=== PATIENT | female | born 1990 | race Caucasian/White ===

== ENCOUNTER 2017-10-12 11:13 | Emergency (ER) | payer BC ==
[2017-10-12 11:44] VITALS: BP 114/80
--- NOTE | 2017-10-12 11:53 | UC ---
Complaint Female HPI - HPI Summary HPI Summary: 24 hours of dysuria, no back pain or fever. - History Of Current Complaint Chief Complaint: UCGU Stated Complaint: URINARY Time Seen by Provider: 10/12/17 11:43 Hx Obtained From: Patient Hx Last Menstrual Period: 09/29/17 ?: No Onset/Duration: Sudden Onset, Lasting Days - 1 Timing: Constant Severity Initially: Mild Severity Currently: Moderate Pain Intensity: 4 Aggravating Factor(s): Urination - Allergies/Home Medications Allergies/Adverse Reactions: Allergies Allergy/AdvReac Type Severity Reaction Status Date / Time No Known Allergies Allergy Verified 10/12/17 11:39 Home Medications: Home Medications Methenamine/Sodium Salicylate [Cystex Plus Tablet] 2 each PO BID PRN 10/12/17 [ History Confirmed 10/12/17] PMH/Surg Hx/FS Hx/Imm Hx Previously Healthy: Yes - Surgical History Surgical History: None Surgery Procedure, Year, and Place: wisdom teeth - Family History Known Family History: Positive: Hypertension - Social History Alcohol Use: None Substance Use Type: None Smoking Status (MU): Never Smoked Tobacco Review of Systems Constitutional: Negative Skin: Negative Eyes: Negative ENT: Negative Respiratory: Negative Cardiovascular: Negative Gastrointestinal: Negative Genitourinary: Dysuria, Frequency Motor: Negative Neurovascular: Negative Musculoskeletal: Negative Neurological: Negative Psychological: Negative Is Patient Immunocompromised?: No All Other Systems Reviewed And Are Negative: Yes Physical Exam Triage Information Reviewed: Yes Appearance: Well-Appearing, Well-Nourished, Pain Distress Vital Signs: Initial Vital Signs Temp 97.7 F 10/12/17 11:41 Pulse 81 10/12/17 11:41 Resp 16 10/12/17 11:41 BP 114/80 10/12/17 11:41 Pulse Ox 100 10/12/17 11:41 Vital Signs Reviewed: Yes Eye Exam: Normal ENT Exam: Normal Dental Exam: Normal Neck exam: Normal Respiratory Exam: Normal Respiratory: Positive: Chest non-tender, Lungs clear, Normal breath sounds Cardiovascular Exam: Normal Cardiovascular: Positive: RRR, No Murmur, Pulses Normal Abdominal Exam: Normal Abdomen Description: Positive: Nontender, No Organomegaly, Soft, CVA Tenderness (R) - eg, CVA Tenderness (L) - negn Bowel Sounds: Positive: Present Musculoskeletal Exam: Normal Neurological Exam: Normal Psychological Exam: Normal Skin Exam: Normal Complaint Female Dx - Course Course Of Treatment: hx obtained, exam performed ,meds reviewed, ua obtained, treated for UTI and hx of nausea with ABX - Differential Dx/Diagnosis Differential Diagnosis/HQI/PQRI: Ureteral Stone, Urinary Tract Infection Provider Diagnoses: UTI Discharge - Sign-Out/Discharge Documenting (check all that apply): Discharge/Admit/Transfer - Discharge Plan Condition: Stable Disposition: HOME Patient Education Materials: Urinary Tract Infection in Women (DC) Referrals: No Primary Care Phys,NOPCP [Primary Care Provider] - Additional Instructions: 1. increase fluid intake 2. Take the medication as prescribed 3. Follow up with any worsening symtpoms. - Billing Disposition and Condition Condition: STABLE Disposition: Home
[2017-10-12] MEDS ORDERED: Phenazopyridine TAB* 100 MG PO ONE (11:57)
== END 2017-10-12 12:10 | disposition home or self-care (01) ==
LOC: UCCORT 11:13
DX: N39.0 Urinary tract infection, site not specified (principal); B96.1 Klebsiella pneumoniae [K. pneumoniae] as the cause of diseases classified elsewhere; Z16.11 Resistance to penicillins
CPT/HCPCS: 81003; 87077; 87086; 87186; 99212; A9270-GY; G0463

== ENCOUNTER 2018-03-24 20:22 | Emergency (ER) | payer BC ==
[2018-03-24 20:40] VITALS: BP 118/64
--- NOTE | 2018-03-24 20:55 | UC ---
UC General HPI - HPI Summary HPI Summary: ON 03/16/18, PT NOTED SOME BURNING AND FREQUENCY WITH URINATION. SHE SELF TX WITH KEFLEX 500MG BID X 6 DAYS WHICH WAS A LEFT OVER PRESCRIPTION. SHE NOTED SOME IMPROVEMENT UNTIL TODAY WHEN SHE GOT SOME RECURRENT FREQUENCY AND BURNING WITH URINATION PLUS SOME BLADDER PRESSURE. SHE DENIES AND RISK/CONCERN FOR STD'S AND VAGINAL D/C. PT ALSO DENIES ANY ABDOMINAL PAIN, FLANK PAIN AND FEVER. - History of Current Complaint Chief Complaint: UCGU Stated Complaint: URINARY COMPLAINT Time Seen by Provider: 03/24/18 20:33 Hx Obtained From: Patient Hx Last Menstrual Period: middle of February Pain Intensity: 2 - Allergy/Home Medications Allergies/Adverse Reactions: Allergies Allergy/AdvReac Type Severity Reaction Status Date / Time No Known Allergies Allergy Verified 03/24/18 20:32 PMH/Surg Hx/FS Hx/Imm Hx - Additional Past Medical History Additional PMH: UTI'S - Surgical History Surgical History: None Surgery Procedure, Year, and Place: wisdom teeth - Family History Known Family History: Positive: Hypertension - Social History Occupation: Employed Full-time Alcohol Use: Rare Substance Use Type: None Smoking Status (MU): Never Smoked Tobacco - Immunization History Vaccination Up to Date: Yes Review of Systems All Other Systems Reviewed And Are Negative: Yes Constitutional: Positive: Negative Skin: Positive: Negative Eyes: Positive: Negative ENT: Positive: Negative Respiratory: Positive: Negative Cardiovascular: Positive: Negative Gastrointestinal: Positive: Negative Genitourinary: Positive: Dysuria, Frequency, Urgency. Negative: Vaginal/Penile Burning, Vaginal/Penile Itching, Vaginal/Penile Discharge, Vaginal/Penile Pain, Ulceration/Lesion, Abnormal Bleeding Motor: Positive: Negative Neurovascular: Positive: Negative Musculoskeletal: Positive: Negative Neurological: Positive: Negative Psychological: Positive: Negative Physical Exam Triage Information Reviewed: Yes Appearance: Well-Appearing Vital Signs: Initial Vital Signs Temp 97.6 F 03/24/18 20:33 Pulse 87 03/24/18 20:33 Resp 15 03/24/18 20:33 BP 118/64 03/24/18 20:33 Pulse Ox 100 03/24/18 20:33 Vital Signs Reviewed: Yes Eyes: Positive: Conjunctiva Clear ENT: Positive: Pharynx normal, TMs normal. Negative: Nasal congestion, Nasal drainage Neck: Positive: Supple, Nontender, No Lymphadenopathy Respiratory: Positive: Lungs clear, Normal breath sounds Cardiovascular: Positive: RRR, No Murmur Abdomen Description: Positive: Nontender, No Organomegaly, Soft. Negative: CVA Tenderness (R), CVA Tenderness (L), Distended, Guarding Bowel Sounds: Positive: Present Musculoskeletal: Positive: ROM Intact Neurological: Positive: Alert Psychological: Positive: Age Appropriate Behavior Skin Exam: Normal Diagnostics - Laboratory Diagnostic Studies Completed/Ordered: U/A=TRACE KETONES, 3+ BLOOD,UROBILINOGEN. WILL CULTURE GIVEN HX OF POSSIBLE TX FAILURE. Course/Dx - Course Course Of Treatment: NON TOXIC. NO ACUTE ABDOMEN. NO CONCERN FOR PYELONEPHRITIS. PT DENIES RISK/CONCERN/SIGNS AND SYMPTOMS OF STD. SYMPTOMS CONCERNING FOR UTI THAT FAILED KEFLEX THUS WILL TX PRESUMPTIVELY WITH MACROBID WHILE CULTURE IS PENDING. NON INFECTION CYSTITIS IS POSSIBLE WELL. NEED FOR F /U STRESSED AT TIME OF DISCHARGE DUE TO FAILED TX AND BLOOD IN URINE. - Diagnoses Provider Diagnosis: Dysuria, Hematuria Discharge - Sign-Out/Discharge Documenting (check all that apply): Patient Departure All imaging exams completed and their final reports reviewed: No Studies - Discharge Plan Condition: Stable Disposition: HOME Prescriptions: Nitrofurantoin Monohyd/M-Cryst [Macrobid 100 mg Capsule] 100 mg PO BID 5 Days # 10 cap Patient Education Materials: Hematuria (ED), Dysuria (ED) Referrals: [facility] [Provider Group] - 7 Days - Billing Disposition and Condition Condition: STABLE Disposition: Home
[2018-03-24] MEDS ORDERED: Nitrofurantoin Macrocrystals* 50 MG CAP PO ONE (20:57)
== END 2018-03-24 21:08 | disposition home or self-care (01) ==
LOC: UCCORT 20:22
DX: R30.0 Dysuria (principal); R31.9 Hematuria, unspecified
CPT/HCPCS: 81003; 87086; 99212; A9270-GY; G0463

== ENCOUNTER 2020-12-11 00:08 | Inpatient (IN) ==
[2020-12-11] MEDS ORDERED: Buffered Lidocaine 1% SYRIN 1 ml INTRADERM ONE (01:00)
[2020-12-11] MEDS ORDERED: Glycerin ADULT 2.4 gm SUPP PR PRN (09:48)
[2020-12-11] MEDS ORDERED: Witch Hazel PAD JAR TOPICAL PRN (09:48)
[2020-12-11] MEDS ORDERED: Dibucaine 1% OINT 28.35 GM TUBE ONE (09:48)
[2020-12-11] MEDS ORDERED: Lactated Ringers 1000 ml BAG 1,000 ML IV SCH (10:00)
[2020-12-11] MEDS: Dibucaine 1% OINT 28.35 GM TUBE PR PRN ×3 (10:00→20:13)
[2020-12-11 10:02] LABS: Urine Benzodiazepine Screen None Detected (None Detect); Urine Cannabinoids Screen None Detected (None Detect); Urine Opiates Screen None Detected (None Detect)
[2020-12-12 08:31] VITALS: BP 103/68
[2020-12-12] MEDS ORDERED: Measles, Mumps,Rubella VACC 0.5 ML/VIAL SUBCUT ONE (09:00)
== END 2020-12-12 14:55 | disposition home or self-care (01) | DRG 560 ==
LOC: MCHOBOUT 00:08 → MCHOB 02:04
PROVIDERS: ADMIT Midwife; ATTEND Midwife

== ENCOUNTER 2024-05-08 10:34 | Inpatient (IN) ==
[2024-05-08] MEDS ORDERED: Lidocaine 1% VIAL 10 MG/ML 30 ML VIAL INJ PRN (14:14)
[2024-05-08] MEDS: Lactated Ringers 1000 ml BAG 1,000 ML IV ONE (16:05)
[2024-05-08] MEDS: Buffered Lidocaine 1% SYRIN 1 ml INTRADERM ONE (16:05)
[2024-05-08] MEDS: Lactated Ringers 1000 ml BAG 1,000 ML IV SCH (16:06)
[2024-05-08] MEDS: Witch Hazel PAD JAR TOPICAL PRN (16:13)
[2024-05-08] MEDS: Dibucaine 1% OINT 28.35 GM TUBE PR PRN (16:13)
[2024-05-08 16:26] LABS: Urine Benzodiazepine Screen None Detected (None Detect); Urine Cannabinoids Screen None Detected (None Detect); Urine Opiates Screen None Detected (None Detect)
[2024-05-09 16:26] VITALS: BP 100/66
== END 2024-05-09 16:56 | disposition home or self-care (01) | DRG 560 ==
LOC: MCHOBOUT 10:34 → MCHOB 13:50